=== PATIENT | female | born 1945 | race Caucasian/White ===

== ENCOUNTER 2016-09-10 15:48 | Emergency (ER) | payer OTHER ==
[~2016-09-10] VITALS: Ht 162.6 cm; Wt 59.0 kg
[2016-09-10 15:50] VITALS: Ht 162.6 cm; Wt 59.0 kg
[2016-09-10] MEDS ORDERED: DIPHTH/TET/ACEL PERTUSS (ADULT) 0.5 ML VIAL IM* ONE (17:00)
[2016-09-10] MEDS ORDERED: IBUPROFEN 600 MG TAB PO ONE (17:00)
[2016-09-10] MEDS ORDERED: LIDOCAINE 2%/EPI MPF (SDV) 20 ML VIAL INJ ONE (17:00)
--- NOTE | 2016-09-10 17:12 | RADRPT ---
PROCEDURE: Right hand x-ray CLINICAL INDICATION: dog bite R hand TECHNIQUE: AP, lateral and oblique views were obtained. COMPARISON: None FINDINGS: There is dorsal soft tissue swelling in the region of the third and fourth digits and metacarpals. Laceration of the dorsum of the hand is seen at the level of the distal metacarpals. Air is seen in the soft tissues. No definite fracture or foreign body is seen. IMPRESSION: Soft tissue injury with air in the soft tissues but no definite foreign body. RPTAT: [facility] Physician Deven Date Time Electronically viewed and signed by Annette Cardenas Physician on 09/10/2016 17:12 LE/
[2016-09-10] MEDS ORDERED: CLIN-73 PO (17:50)
--- NOTE | 2016-09-10 19:36 | ERD ---
ER Documentation Chief Complaint Date/Time DATE: 09/10/16 TIME: 19:30 Chief Complaint BIB RA FROM [facility] FOR DOG BITE TO RT HAND HPI This patient is a 70-year-old female presenting to the emergency department with complaints of dog bite to her right hand which occurred at 3:30 PM today. The patient works at an animal custodial. The dog was a Hernandez mix and was up- to-date on all immunizations. The patient is right-hand dominant. Symptoms are moderate in severity. Associated symptoms include pain. The patient is not up-to-date on her tetanus. No medication taken for relief of symptoms. The patient denies other symptoms or injuries currently. ROS All systems reviewed and are negative except as per history of present illness. Medications Home Meds Active Scripts Clindamycin Hcl* (Clindamycin Hcl*) 300 Mg Capsule, 300 MG PO TID for 7 Days, # 21 CAP Prov:BRITANY PEDERSEN PA-C 09/10/16 Allergies Allergies: Coded Allergies: Penicillins (Verified Allergy, Unknown, 09/10/16) PMhx/Soc History of Surgery: Yes (appy) Hx Miscellaneous Medical Probl: Yes (L breast CA starting radiation) Hx Alcohol Use: No Hx Substance Use: No Hx Tobacco Use: No Smoking Status: Never smoker Physical Exam Vitals Vital Signs Date Time Temp Pulse Resp B/P Pulse Ox O2 Delivery O2 Flow Rate FiO2 09/10/16 15:50 98.1 76 18 140/72 99 Physical Exam Const: Nontoxic, well-appearing female in mild distress secondary to pain. Head: Atraumatic Eyes: Normal Conjunctiva ENT: Normal External Ears, Nose and Mouth. Neck: Full range of motion..~ No meningismus. Resp: Clear to auscultation bilaterally Cardio: Regular rate and rhythm, no murmurs Abd: Soft, non tender, non distended. Normal bowel sounds Skin: There is an approximate 6 cm partial-thickness laceration to the dorsal surface of the right hand with active bleeding but no foreign body noted. Back: No midline or flank tenderness Ext: No cyanosis, or edema Neur: Awake and alert Psych: Normal Mood and Affect Results 24 hrs Current Medications Medications (Trade) Dose Ordered Sig/Cheko Route PRN Reason Start Time Stop Time Status Last Admin Dose Admin Diphtheria/ Tetanus/Acell Pertussis (Adacel) 0.5 ml ONCE ONCE IM* 7/27/17 17:00 09/10/16 17:18 DC 09/10/16 16:45 Ibuprofen (Motrin) 600 mg ONCE ONCE PO 09/10/16 17:00 09/10/16 17:18 DC 09/10/16 16:43 Lidocaine/ Epinephrine (Xylocaine 2%/ Epi Mpf(Sdv)) 20 ml ONCE ONCE INJ 09/10/16 17:00 09/10/16 17:18 DC Procedures/MDM 70-year-old female presenting to the emergency department with complaints of laceration to her right hand after dog bite today. Exam shows a 6 cm partial- thickness laceration to the dorsal surface of the right hand. Bleeding was controlled in the department. Tdap was given. Sutures were tied loosely and far between to allow for proper drainage and aeration of the wound. Strict ER return precautions were discussed. The patient was informed of mandatory 48 hour repeat evaluation of the wound. She demonstrated good understanding of this. Her questions and concerns were addressed. Laceration Repair by me: Anesthesia: 2% lidocaine with epinephrine locally Location: Dorsal surface of the right hand Tendon/Joint/Nerves: No injury Foreign body: None detected after copious irrigation and exploration Technique: 5x 5-0 prolene Simple Interrupted Sutures Complexity: No subcutaneous sutures/mucosal repair/ edge excision Post Closure Length: 6 cm Patient's bleeding was easily controlled in the department and there is no indication of anemia. No evidence of compartment syndrome, neurologic injury, vascular injury, open joint, tendon laceration, or foreign body. Patient is appropriate for outpatient follow up. 48 hour wound check. Scar minimization instructions given. There was a small second laceration noted to the dorsal surface of the hand just proximal to the fifth digit which measured approximately 0.25 cm and this was left open for drainage. There was a third small laceration noted to the ventral surface of the right hand just proximal to the fifth digit which is left open for drainage. This laceration measured approximately 0.5 cm. Given the patient's allergy to penicillin she was given a prescription for clindamycin. Departure Diagnosis: Primary Impression: Dog bite Additional Impression: Laceration Condition: Fair Patient Instructions: Dog Bite, Laceration, Hand Additional Instructions: Return in 48 hours for wound recheck. Return in 7 days for suture removal. Follow up with your PCP within the next 1-3 days for a repeat evaluation. If you require a referral to a specialist, your Primary Care Provider may be able to provide this for you. In most patient cases, a referral is not required. If you have further questions regarding this matter, please ask your Primary Care Provider. Return the the emergency department immediately if symptoms worsen or change. If you have any questions regarding medications, ask your pharmacist or us before you leave. If any adverse reactions, occur while taking your medications, discontinue the treatment and return to the emergency department immediately. If any new or worsening symptoms, uncontrolled fevers, or other unexplained symptoms occur, return to the emergency department immediately. Take your medications as directed, and complete the entire course of treatment. BRITANY PEDERSEN PA-C Sep 10, 2016 19:36
== END 2016-09-10 18:06 | disposition home or self-care (01) ==
LOC: FTE 15:48
DX: S61.411A Laceration without foreign body of right hand, initial encounter (principal); W54.0XXA Bitten by dog, initial encounter; Y92.9 Unspecified place or not applicable; Z85.3 Personal history of malignant neoplasm of breast
CPT/HCPCS: 90471; 90715